=== PATIENT | female | born 1975 | race Caucasian/White ===

== ENCOUNTER 2016-10-08 06:23 | Inpatient (IN) | payer MEDICAID ==
[~2016-10-08] VITALS: Ht 167.6 cm; Wt 103.0 kg
--- NOTE | 2016-10-08 20:34 | HP ---
ADMIT: 10/08/2016 RM/LOC: 229 [facility] MR#: [id number] [address] [id number] MADELYN SCHAEFFER [address] [place] [address] History and Physical SEX: F AGE: 40 : 1975 DATE OF SERVICE: CHIEF COMPLAINT: Induction of labor for postdates. HISTORY OF PRESENT ILLNESS: Madelyn is a very pleasant, 40-year-old, 2, para 1-0-0-1 with a current intrauterine at 40 weeks and 1/7 days by last menstrual period, confirmed by first trimester ultrasound, presents to Labor and Delivery for the above complaints. She has been following since approximately 8 weeks . Her has been complicated by positive trisomy 18 quad screen at 20 weeks. Some mild nuchal fold thickness increase on ultrasound at 20 weeks. She was seen by Dr. Barkley with MFM at [facility]. Chromosomal studies came back normal. Microarray was not done for cost purposes, but otherwise everything in their opinion was reassuring, and quad screen was wrong for trisomy 18. The patient has also had chronic back pain at baseline, which she normally takes Tylenol with codeine for. She has weaned off this in the last four weeks. The patient did smoke during early , but no current smoking. She has no other complaints today. PAST MEDICAL HISTORY: Includes: 1. Gastroesophageal reflux. 2. Lumbago. 3. History of back surgeries in 1997 and 2006. 4. Lumbar laminectomy and microdiskectomy of L4 and L5, and L5-S1. 5. L5 lumbar radiculopathy, chronic. 6. Nicotine dependence. 7. Insomnia. MEDICATIONS: vitamin. ALLERGIES: SULFA. SOCIAL HISTORY: The patient has quit smoking, smoked early in . Father of baby is involved. The patient works at [employer]. No alcohol or other drug use. FAMILY HISTORY: Noncontributory. REVIEW OF SYSTEMS: A 10-point review of systems obtained, per HPI otherwise negative. PHYSICAL EXAMINATION: VITAL SIGNS: Within normal limits and stable. Afebrile. GENERAL: Alert and oriented. Does not appear in acute distress. HEENT: Pupils equal, round, and reactive. Extraocular muscles intact. Throat is clear. HEART: Regular rate and rhythm. LUNGS: Clear. ABDOMEN: Gravid. Vertex by Dario. Nursing cervical check showed 2 cm dilated, -2 station, and thick. heart tones category I, few ADMIT: 10/08/2016 RM/LOC: 229 [facility] MR#: [id number] [address] [address] BR[place], MADELYN VELMA [address] [place] [address] History and Physical SEX: F AGE: 40 : 1975 contractions. EXTREMITIES: Denies significant edema. ASSESSMENT: This is a 40-year-old female with: 1. Intrauterine at 40 weeks and 1/7 days. 2. Here for induction of labor for postdates. 3. Chronic back pain with failed back syndrome. 4. Advanced maternal age. 5. Nicotine use during early . 6. Chronic opioid use during , has weaned off in the last few weeks. 7. Thickened nuchal fold on ultrasound at 20 weeks, with positive quad screen. Post MFM evaluation with normal chromosomal studies. No microarray done. 8. Group B strep negative. PLAN: We will start patient on Pitocin. Epidural when needed. Active management of labor. We will monitor closely. Jerald Torres MD/ lyle JOB #: [id number] CC: Jerald Torres, Attending Physician Jerald Torres, Family Physician
[2016-10-11] MEDS ORDERED: PRENATAL VIT1 TAB PO (10:40)
[2016-10-11] MEDS ORDERED: PREVACID15 MG PO (10:40)
[2016-10-11] MEDS ORDERED: IRON325 M1 PO (10:40)
[2016-10-11] MEDS ORDERED: ASCORBIC ACID500 MG PO (10:40)
[2016-10-11] MEDS ORDERED: TYLENOL DPS325 MG PO (10:41)
[2016-10-11] MEDS ORDERED: NORCO 5-325 TA1 EACH PO (10:41)
[2016-10-11] MEDS ORDERED: MOTRIN-DPS800 MG PO (10:41)
--- NOTE | 2016-10-15 08:10 | OR ---
ADMIT: 10/08/2016 RM/LOC: 229 [facility] MR#: [id number] [id number] [facility] [address] [place] [id number] MADELYN SCHAEFFER [address] [place] [address] Operative/Delivery Room Report SEX: F AGE: 40 : 1975 SURGERY DATE: 10/08/2016 SURGEON: Jerald Torres MD PREOPERATIVE DIAGNOSES: 1. Intrauterine at 40 weeks and 1/7 days. 2. Group B Strep negative. 3. Positive quad screen with increased nuchal thickness with negative workup with MFM, negative chromosomes. 4. Advanced maternal age. 5. Postdates. POSTOPERATIVE DIAGNOSES: 1. Status post spontaneous vaginal delivery. 2. Status post repair of second-degree perineal laceration. 3. Intrauterine at 40 weeks and 1/7 days. 4. Group B Strep negative. 5. Positive quad screen with increased nuchal thickness with negative workup with MFM, negative chromosomes. 6. Advanced maternal age. 7. Postdates. PROCEDURE: 1. Spontaneous vaginal delivery. 2. Repair of second-degree perineal laceration. 3. Removal of epidural catheter. FINDINGS: 1. Live-born infant male born at 2048 hours with weight of 9 pounds 4-1/2 ounces with scores of 8 and 9 at 1 and 5 minutes respectively. 2. Intact placenta with three vessel cord. NIGHTCLUB MANAGER: Cory Muñoz. ANESTHESIA: Epidural. ESTIMATED BLOOD LOSS: 350 mL. FLUIDS: Crystalloid. COMPLICATIONS: None immediate. INDICATION FOR PROCEDURE: Please refer to dictated H and P. Briefly, Madelyn is a very pleasant, 40-year-old, 2 para 1, with an intrauterine at 40 weeks and 1/7 days, presented for elective induction of labor for post dates. The patient has a history of chronic back pain and failed back syndrome, and given her worsening pain, she wished to proceed with induction of labor. She presented on the morning of delivery, was started on Pitocin, low-dose IV protocol. The patient progressed slowly over the course ADMIT: 10/08/2016 RM/LOC: 229 [facility] MR#: [id number] [address] [address] MADELYN SCHAEFFER [address] [place] [address] Operative/Delivery Room Report SEX: F AGE: 40 : 1975 of the morning and early afternoon. At approximately 1700 hours, she was found to be about 5-6 cm dilated, 70% effaced, 0 station. The patient requested epidural at that time. At approximately 1725 hours, artificial rupture of membranes was performed as the patient was 7.5 cm, 90% effaced, and 0 station. Thin meconium stained fluid was noted. Otherwise, no nuchal cords. Over the next 1-2 hours, the patient progressed to being complete and bringing the 's vertex to the perineum. Continuous maternal monitoring was done throughout the labor process and was reassuring. DESCRIPTION OF PROCEDURE: The patient was in the dorsal lithotomy position, draped in the usual fashion. Infant's vertex noted to be on the perineum. Mother was asked to push, delivering the infant's head in the JACKI position. After restitution of the head, no nuchal cords were noted, and with light gentle traction, right anterior shoulder, followed by the posterior shoulder, and the remainder of the was done without any difficulty. was noted to be crying upon delivery. Was held below maternal pelvis for approximately 30-45 seconds for delayed clamping. Mouth and nares were bulb- suctioned. Infant was then transferred to maternal abdomen, where nursing personnel were in attendance. Cord was clamped x2 and cut by the father at the bedside. Cord blood was obtained. Placenta delivered intact in less than 5 minutes. Twenty units of Pitocin started in IV bag to help firm the uterus. Attention was then turned to the vaginal vault and cervix, which was noted to be free of laceration. Likewise, attention turned to perineum and noted to have a second-degree perineal laceration, which was repaired with 3-0 Vicryl in the usual fashion. There were no major complications with delivery. Sponge and needle counts were correct. Epidural catheter was removed without any difficulty and noted to be intact. Upon my leaving, infant and mother were in stable condition recovering. Jerald Torres MD/ lyle JOB #: [id number] CC: Jerald Torres, Attending Physician Jerald Torres, Family Physician
--- NOTE | 2016-11-14 07:48 | DS ---
ADMIT: 10/08/2016 RM/LOC: 229 [facility] MR#: [id number] [facility] [address] [place] [phone] MADELYN SCHAEFFER [address] [place] [address] General Discharge Summary SEX: F AGE: 40 : 1975 ADMISSION DATE: 10/08/2016 DISCHARGE DATE: 10/10/2016 DELIVERY DATE: 10/08/2016 FINAL DIAGNOSES: 1. Term intrauterine at 40 weeks and 1/7 days. 2. Status post spontaneous vaginal delivery. 3. Status post repair of second-degree perineal laceration. 4. Group B Streptococcus negative. 5. Advanced maternal age. 6. Postdates. 7. Chronic back pain. Jerald Torres MD/ modl JOB #: [id number] CC: Jerald Torres MD, Attending Physician Jerald Torres MD, Family Physician
== END 2016-10-10 12:00 | disposition home or self-care (01) | DRG 775 ==
LOC: BC 06:23 → 2LDRP 06:23
PROVIDERS: ADMIT Family Medicine
PROC: 0KQM0ZZ Repair Perineum Muscle, Open Approach (ICD-10-PCS; principal; 2016-10-08)
PROC: 10E0XZZ Delivery of Products of Conception, External Approach (ICD-10-PCS; principal; 2016-10-08)
PROC: 3E033VJ Introduction of Other Hormone into Peripheral Vein, Percutaneous Approach (ICD-10-PCS; principal; 2016-10-08)
PROC: 10907ZC Drainage of Amniotic Fluid, Therapeutic from Products of Conception, Via Natural or Artificial Opening (ICD-10-PCS; principal; 2016-10-08)
DX: O48.0 Post-term pregnancy (principal); G89.29 Other chronic pain; O77.0 Labor and delivery complicated by meconium in amniotic fluid; O75.89 Other specified complications of labor and delivery; M54.9 Dorsalgia, unspecified; M54.16 Radiculopathy, lumbar region; O70.1 Second degree perineal laceration during delivery; Z87.891 Personal history of nicotine dependence; Z79.891 Long term (current) use of opiate analgesic; Z37.0 Single live birth; Z3A.40 40 weeks gestation of pregnancy